=== PATIENT | male | born 1970 | race Caucasian/White ===

== ENCOUNTER 2021-03-17 20:57 | Emergency (ER) | payer OTHER ==
[~2021-03-17] VITALS: Ht 185.4 cm; Wt 99.8 kg
--- NOTE | 2021-03-17 20:57 | NUR ---
Pt bibself c/o hypertension "in the 170s" and an episode of "eye bulging out". Pt aaox4 breathing evenly and unlabored. Pt attached to monitor and pox. SKin warm, dry, and intact. Pt admits to having anxiety "this might just be anxiety, but i want to be sure". Pt given blanket and call light within reach
--- NOTE | 2021-03-17 22:00 | NUR ---
taken to ct
--- NOTE | 2021-03-17 22:10 | NUR ---
returned from ct
[2021-03-17 22:34] LABS: BASOPHILS % (AUTO) 0.9 % (0.0-2.0); EOSINOPHILS % (AUTO) 2.1 % (0.0-6.0); HEMATOCRIT 44 % (39-51); HEMOGLOBIN 15.3 g/dL (13.5-17.5); LYMPHOCYTES # (AUTO) 1.2 K/uL (0.8-4.8); LYMPHOCYTES % (AUTO) 22.1 % (20.0-44.0); MEAN CORPUSCULAR HGB CONC 35 g/dl (31.0-36.0); MEAN CORPUSCULAR VOLUME 93 fL (80-96); MONOCYTES # (AUTO) 0.5 K/uL (0.1-1.30); MONOCYTES % (AUTO) 9.6 % (2.0-12.0); NEUTROPHILS # (AUTO) 3.4 K/uL (1.8-8.9); NEUTROPHILS % (AUTO) 65.3 % (43.0-81.0); PLATELET COUNT (AUTO) 222 K/uL (150-450); RED BLOOD CELL COUNT(AUTO) 4.74 MIL/uL (4.5-6.0); WHITE BLOOD COUNT (AUTO) 5.2 K/uL (4.3-11.0)
[2021-03-17 22:57] LABS: CALCIUM, SERUM 8.2 mg/dL (8.5-10.1); CARBON DIOXIDE 26 mmol/L (21-32); CHLORIDE 106 mmol/L (98-107); CREATININE 0.9 mg/dL (0.6-1.3); GLUCOSE 88 mg/dL (74-106); POTASSIUM 3.5 mmol/L (3.5-5.1); SODIUM SERUM 141 mmol/L (136-145); UREA NITROGEN, BLOOD 11 mg/dL (7-18)
--- NOTE | 2021-03-17 23:23 | NUR ---
called wanda to have image read
[2021-03-17] MEDS ORDERED: AMLO-212 PO (23:44)
--- NOTE | 2021-03-17 23:49 | NUR ---
Patient discharged to home in stable condition. Written and verbal after care instructions given. Patient verbalizes understanding of instruction. Pt ambulatory with a steady gait
[2021-03-17 23:52] VITALS: BP 167/99
== END 2021-03-17 23:49 | disposition home or self-care (01) ==
LOC: ER 21:02
DX: I10 Essential (primary) hypertension (principal); R51.9 Headache, unspecified; F41.9 Anxiety disorder, unspecified; Z79.899 Other long term (current) drug therapy
CPT/HCPCS: 36415; 70450-TC; 80048-TC; 84484-TC; 85025-TC